=== PATIENT | female | born 1970 | race American Indian/Alaskan Native ===

== ENCOUNTER → 2024-10-27 | Outpatient (CLI) | payer MEDICAID, SELFPAY ==
--- NOTE | 2024-10-27 08:00 | XR_ITS ---
Examination: MRI abdomen with intravenous contrast. MRI abdomen without intravenous contrast. Date and time of exam: October 27, 2024 at 0912 hours INDICATIONS: Diagnosis cirrhosis, abdominal pain beginning 8 years ago Technique: Multiple axial, sagittal and coronal sections of the abdomen obtained. Transverse images, TR 6020, TE 107. T1 weighted transverse images, TR 582, TE 9.5. T2-weighted sagittal images, TR 4000, TE 105. T2-weighted sagittal images, TR 4000, TE 5. Coronal images, TR 4210, TE 107. Axial and coronal images are obtained post 20 cc intravenous injection, gadolinium. Findings: Cirrhosis, liver irregular in contour, no focal liver lesions Splenomegaly AP dimension 14 cm Gallstones, negative for cholecystitis No common hepatic or common bile duct stones No abnormal enhancement in the liver spleen No pancreatitis. No ascites Negative for hydronephrosis Aorta normal size IMPRESSION: Cirrhosis. No focal liver lesions Mild splenomegaly. Cholelithiasis, negative for cholecystitis Negative for ascites
== END | disposition home or self-care (01) ==
LOC: SMRI 08:14
PROVIDERS: PCP Family Medicine; Referring Provider Internal Medicine; Visit Provider Internal Medicine
DX: K70.30 Alcoholic cirrhosis of liver without ascites (principal); R16.1 Splenomegaly, not elsewhere classified; K80.20 Calculus of gallbladder without cholecystitis without obstruction
CPT/HCPCS: 74183; A9579

== ENCOUNTER 2025-02-01 20:05 | Inpatient (IN) | payer MEDICAID, SELFPAY ==
[2025-02-01 20:06] VITALS: BMI 29.2
[2025-02-01 20:19] VITALS: BP 164/92; PULSE 68; RESP 20; TEMP 36.5; O2SAT 95
--- NOTE | 2025-02-01 20:51 | XR_ITS ---
Examination: CT abdomen and pelvis without contrast. Coronal 3-D reconstructions. Sagittal 2-D reconstructions. Date and time of exam: February 01, 2025 2132 hours INDICATIONS: No abdominal pain after eating today CTDI: vol (mGy): 8.66 DLP: (mGycm): 450 Technique: Axial images of the abdomen have been obtained, 3 mm slice thickness Intravenous contrast material has not been administered. Low dose protocols were performed. One or more of the following dose reduction techniques were used; automated exposure control, adjustment of the mA and/or KV according to patient size, use of iterative reconstruction technique. Findings: Cirrhosis, liver lobular in contour, moderate splenomegaly Cholelithiasis No pancreatic or adrenal mass No renal or ureteral calculi, no hydronephrosis Fluid distended small bowel loops in the mid and left abdomen, secondary to incarcerated small bowel in an umbilical hernia, axial image 121 Normal appendix No diverticulitis Atrophic uterus Bladder intact IMPRESSION: Cirrhosis Moderate splenomegaly Small bowel obstruction secondary to incarcerated small bowel in a umbilical hernia
--- NOTE | 2025-02-01 20:52 | PD.EDRME ---
Rapid Medical Screening Exam E Arrival date/time: 02/01/25 20:05 This is a case of 54-year-old female with history of hernia came into the emergency room due to abdominal pain on and off for 3 days with nausea vomiting worsening of the symptoms this patient decided to start consulted in the emergency room Chief Complaint: Abdominal Pain Time Seen by Provider: 02/01/25 20:51 Vital signs: Vital Signs Temperature 97.7 F 02/01/25 20:19 Pulse Rate 68 02/01/25 20:19 Respiratory Rate 20 02/01/25 20:19 Blood Pressure 164/92 H 02/01/25 20:19 Pulse Oximetry (%) 95 02/01/25 20:19 Oxygen Delivery Method Room Air 02/01/25 20:19 Exam: Mild to tenderness periumbilical area no guarding no rebound no rigidity Clinical Impression: Abdominal pain
[2025-02-01 21:27] LABS: Collection Type, Urine Clean Catch; WBC,Urine 0 /hpf (0-5)
[2025-02-01 21:37] LABS: Amorphous Crystals,Urine Present (Absent); Bilirubin,Urine Negative (Negative); Blood,Urine Negative (Negative); Clarity,Urine Clear (Clear/Hazy); Color,Urine Lt-Yellow (Lt Yel-Yel); Glucose, Urine Negative (Negative); Ketones,Urine Negative (Negative); Leukocyte Esterase,Urine Negative (Negative); Nitrite,Urine Negative (Negative); PH,Urine 6.5 (5.0-7.0); Protein,Urine Negative (Neg - Trace); RBC,Urine 1 /hpf (0-3); Specific Gravity,Urine 1.019 (1.001-1.035); Squamous Epithelial Cell,Urine 1 /hpf (0-5); Urobilinogen,Urine Negative mg/dL (0.0-1.0)
[2025-02-01 22:01] LABS: Basophils # (Auto) 0.0 Thou/mm3 (0.0-0.2); Basophils % (Auto) 1 % (0-2.5); Eosinophils # (Auto) 0.1 Thou/mm3 (0.0-0.5); Eosinophils % (Auto) 1 % (0-10); Hematocrit 39.8 % (36.0-46.0); Hemoglobin 14.0 g/dL (12.0-16.0); Immature Granulocytes Auto 0.03 Thou/mm3 (0.00-0.00); Lymphocytes # (Auto) 1.2 Thou/mm3 (1.0-4.8); Lymphocytes % (Auto) 17 % (10-50); Mean Corpuscular HGB Conc 35.2 g/dl (31.0-37.0); Mean Corpuscular Hemoglobin 31.2 pg (25.0-35.0); Mean Corpuscular Volume 89 fL (80-100); Monocytes # (Auto) 0.3 Thou/mm3 (0.0-0.8); Monocytes % (Auto) 4 % (0-12); Neutrophils # (Auto) 5.7 Thou/mm3 (1.8-7.7); Neutrophils % (Auto) 77 % (37-80); Nucleated Red Blood Cell # 0.00 Thou/mm3 (0.00-0.00); Nucleated Red Blood Cell % 0 /100 WBC (0); Platelet Count 211 Thou/mm3 (140-440); RDW Standard Deviation 42.1 fL (36.4-46.3); Red Blood Count 4.49 Miln/mm3 (4.00-5.20); White Blood Count 7.3 Thou/mm3 (3.6-11.0)
--- NOTE | 2025-02-01 22:04 | PD.EDABDPN ---
ED Abdominal Pain RME/HPI General Chief Complaint: Abdominal Pain Stated complaint: LOWER ABD PAIN FOR FOUR HOURS Time seen by provider: 02/01/25 20:51 Arrival date/time: 02/01/25 20:05 RME / HPI RME / HPI narrative: 02/01/25 20:05 This is a case of 54-year-old female with history of hernia came into the emergency room due to abdominal pain on and off for 3 days with nausea vomiting worsening of the symptoms this patient decided to start consulted in the emergency room Dr. Escobar?s Main ED Evaluation: 54yo female with onset of periumbilical/diffuse lower abdominal pain x 3-4 hours. Pain is described as pressure and protuberance with umbilicus. She reports 1 bout of nonbloody emesis. No fever or chills. No urgency, frequency, or dysuria. PMH includes cirrhotic liver disease, HTN, previous history of alcohol dependence syndrome, chronic anemia, inappropriate sinus tachycardia. PSH includes tubal litigation. Social history unremarkable. NKA. Related Data Home Medications ?Medication ?Instructions ?Recorded ?Confirmed potassium chloride 10 mEq 10 meq PO BID 09/05/18 09/05/18 tablet,extended release Previous Rx's ?Medication ?Instructions ?Recorded furosemide 20 mg tablet 20 mg PO QAM #30 tabs 07/08/18 spironolactone 25 mg tablet 25 mg PO DAILY #30 tabs 07/08/18 potassium chloride 10 mEq 10 meq PO BID #20 caps 09/05/18 capsule,extended release Allergies Allergy/AdvReac Type Severity Reaction Status Date / Time No Known Allergies Allergy Verified 02/01/25 20:06 Review of Systems Review of Systems Systems Reviewed: All systems reviewed, normal except as documented Past Medical History Past Medical History NEUROLOGIC: Positive Neurological Disorders and Seizures CARDIAC: Positive Cardiac Disorders and Hypertension; Negative Congestive Heart Failure RESPIRATORY: Negative Chronic Obstructive Pulmonary Disease (COPD) GENITOURINARY: Negative Renal Disease ENDOCRINE: Negative Diabetes Mellitus Type 1 or Diabetes Mellitus Type 2 PSYCHO/SOCIAL: Positive Anxiety OTHER HISTORY: Negative Blood Transfusions Family History FAMILY HISTORY: Positive Family Cardiac Disorders and Family Cancer Surgical History SURGICAL: Positive Eye Surgery and Nose Surgery Social History SMOKING STATUS: Never smoker SUBSTANCE USE: does not use ED Exam Narrative Physical exam: GENERAL APPEARANCE: alert and oriented x 4, well-developed, well-nourished, complains of abdominal pain, no acute distress VITALS: All vitals were reviewed and the pulse ox is 95% on room air, which is normal according to my interpretation. HEENT: Normocephalic, atraumatic; pupils equal, round, reactive to light; EOMI; mucous membranes pink, moist; oropharynx clear NECK: Supple LUNGS: CTABL; no wheezes, no rales, no rhonchi HEART: Regular rate, regular rhythm; normal S1, S2; no murmurs ABDOMEN: non distended; soft, umbilicus has firm inner protuberance with exquisite tenderness, lower abdominal tenderness without guarding or peritoneal findings BACK: no CVA tenderness EXTREMITIES: atraumatic; no edema NEUROLOGIC: awake; alert and oriented x4; cranial nerves II-XII grossly intact; no focal sensory or motor deficits PSYCHIATRIC: appropriate mood and affect SKIN: warm, dry, normal color; no rashes Course Quality Measures none Orders Category Date Time Status Conscious Sedation [RT Stand By for Procedure] NOW Care 02/01/25 23:[address] abdomen pelvis wo con Stat Exams 02/01/25 20:51 Completed CBC Stat Lab 02/01/25 20:57 Completed Comprehensive Metabolic Panel Stat Lab 02/01/25 20:57 Completed Lipase Stat Lab 02/01/25 20:57 Completed Urinalysis Stat Lab 02/01/25 21:09 Completed Etomidate Inj [Amidate Inj] Med 02/01/25 23:55 Discontinued 10 mg IVP X1 ONE Etomidate Inj [Amidate Inj] Med 02/01/25 23:58 Discontinued 10 mg IVP X1 ONE Morphine* Inj Med 02/01/25 22:19 Discontinued 4 mg IVP X1 ONE Sodium Chloride 0.9% 1000 ml [Ns] 1,000 ml Med 02/01/25 22:18 Discontinued IV 999 mls/hr fentaNYL INJ [Sublimaze Inj] Med 02/01/25 23:55 Discontinued 50 mcg IVP X1 ONE fentaNYL INJ [Sublimaze Inj] Med 02/01/25 23:58 Discontinued 50 mcg IVP X1 ONE Vital Signs Vital signs: Vital Signs Temperature 97.7 F 02/01/25 20:19 Pulse Rate 68 02/01/25 20:19 Respiratory Rate 20 02/01/25 20:19 Blood Pressure 164/92 H 02/01/25 20:19 Pulse Oximetry (%) 95 02/01/25 20:19 Oxygen Delivery Method Room Air 02/01/25 20:19 PROCEDURES: Procedural Sedation Indication: other (umbilical hernia reduction) Presedation Evaluation: Patient is alert, awake, oriented x4. Patient consented to procedural sedation for hernia reduction. Mallapati score is 2. ASA: 2 Preparation: panel monitor applied, pulse oximeter, capnometry used, supplemental O2 applied, suction/airway equipment at bedside and IV secured Fentanyl: IV (100 mcg) IV Etomidate dose (mg): 20 Patient Tolerated Procedure: well and no complications Additional Comments: [id number]-[id number] time is 22 minutes. Abdominal Pain MDM MDM Narrative MDM Narrative:: Scribe Attestation: 02/01/25 - Zaida Castellanos am scribing for and in the presence of Dr. Escobar. 54yo female with onset of periumbilical/diffuse lower abdominal pain x 3-4 hours. Pain is described as pressure and protuberance with umbilicus. Please see PE findings. Labs unremarkable. CT abdomen pelvis demonstrates incarcerated umbilical hernia with noted small bowel ileus. Patient underwent successful reduction of umbilical hernia via procedural sedation (see procedure note) and abdominal binder added. Case discussed with hospitalist and general surgeon, and patient will be admitted to the hospitalist service for evaluation by the general surgeon in the morning. Dx: incarcerated umbilical hernia Patient data External records reviewed:: [facility] previous records (Per chart review, patient was seen here on 09/05/18 for ascites.) Clinical information provided by:: patient Social determinants that could affect healthcare access:: none Patient has the following chronic illnesses:: seizures, hypertension, hepatic encephalopathy, and liver cirrhosis with ascites How is presenting disease/condition affected by chronic disease/condition?: exacerbated by Evaluation data The following diagnostics were reviewed and interpreted by me:: lab results and radiology exam(s) Lab and/or radiology exams considered but not ordered:: none Interpretation Summary: [place] [facility] Report Signed Patient: ZION MCKENZIE. Record#: [id number] Birthdate: 1970 Age/Sex: 54 / F Location: [facility] Attending Dr: Ordering Physician: Stella Verdugo Date of Service: 02/01/25 Procedure(s): CT abdomen pelvis wo [facility] Accession Number(s): [id number] cc: Yakov Rivera MD; Aleksandr Mejia MD; Stella Verdugo~ Examination: CT abdomen and pelvis without contrast. Coronal 3-D reconstructions. Sagittal 2-D reconstructions. Date and time of exam: February 01, 2025 2132 hours INDICATIONS: No abdominal pain after eating today CTDI: vol (mGy): 8.66 DLP: (mGycm): 450 Technique: Axial images of the abdomen have been obtained, 3 mm slice thickness Intravenous contrast material has not been administered. Low dose protocols were performed. One or more of the following dose reduction techniques were used; automated exposure control, adjustment of the mA and/or KV according to patient size, use of iterative reconstruction technique. Findings: Cirrhosis, liver lobular in contour, moderate splenomegaly Cholelithiasis No pancreatic or adrenal mass No renal or ureteral calculi, no hydronephrosis Fluid distended small bowel loops in the mid and left abdomen, secondary to incarcerated small bowel in an umbilical hernia, axial image 121 Normal appendix No diverticulitis Atrophic uterus Bladder intact IMPRESSION: Cirrhosis Moderate splenomegaly Small bowel obstruction secondary to incarcerated small bowel in a umbilical hernia Dictated By: Aleksandr Mejia MD Signed By: <Electronically signed by Aleksandr Mejia MD in OV> 02/01/25 3023 Medications / Prescriptions Medications or Prescriptions considered but not ordered:: none Medication administrations:: Medication Administration History Discontinued Medications Etomidate (Etomidate Inj 2 Mg/Ml Vial 10 Ml) 10 mg IVP X1 ONE Stop: 02/01/25 23:56 Etomidate (Etomidate Inj 2 Mg/Ml Vial 10 Ml) 10 mg IVP X1 ONE Stop: 02/01/25 23:59 Fentanyl Citrate (Fentanyl Cit Inj 50 Mcg/Ml Amp 2ml) 50 mcg IVP X1 ONE Stop: 02/01/25 23:56 Fentanyl Citrate (Fentanyl Cit Inj 50 Mcg/Ml Amp 2ml) 50 mcg IVP X1 ONE Stop: 02/01/25 23:59 Sodium Chloride (Ns) 1,000 mls @ 999 mls/hr IV .Q1H1M ONE Stop: 02/01/25 23:18 Last Admin: 10/26/25 23:36 Dose: 999 mls/hr Documented By: JONATHAN Morphine Sulfate (Morphine Sulf Inj 4 Mg/Ml Vial) 4 mg IVP X1 ONE Stop: 02/01/25 22:20 Last Admin: 02/01/25 23:33 Dose: 4 mg Documented By: JONATHAN see above Consultations Consultation(s) initiated? (list below): Yes Consultation #1 (Physician, Specialty, Details): Discussed case with Dr. Elias from general surgery regarding consultation. Discussed patients ED course, exam findings, labs, and radiology results. Agrees to consult. Time: 00:26 Consultation #2 (Physician, Specialty, Details): Discussed case with the resident physician, attending Dr. Howe from Hospitalist service regarding admission. Discussed patients ED course, exam findings, labs, and radiology results. The Hospitalist agrees to accept the patient for admission. Time: 00:40 Diagnosis Differential diagnosis abdominal pain: constipation, diverticulitis, gastroenteritis, small bowel obstruction and other (incarcerated hernia) Most likely diagnosis given after review of the tests above:: see clinical impression below Admission Indicated Admission indicated?: indicated Admission Request Was there a request for admission?: Yes Admission Attestation Admission request attestation: Discussed case with [] from Hospitalist service regarding admission. Discussed patients ED course, exam findings, labs, and radiology results. The Hospitalist [agrees,declines] to accept the patient for admission. Disposition Plan Disposition Plan: Admit Discharge Plan Plan Patient Disposition: Admit Acute Care w/in Hospital Prescriptions/Referrals Prescriptions/Med Rec: No Action spironolactone 25 mg Tablet 25 mg PO DAILY Qty: 30 0RF furosemide 20 mg Tablet 20 mg PO QAM Qty: 30 0RF potassium chloride 10 mEq Tablet Extended Release 10 meq PO BID potassium chloride 10 mEq capsule, extended release 10 meq PO BID Qty: 20 0RF Referrals: Yakov Rivera MD [Primary Care Provider, Family Practice] - In 1 week Problem List Clinical Impression: Incarcerated umbilical hernia Patient/Caregiver Discharge Instructions Print Language: Faroese Stand Alone Forms: Kristel Award Info., Patient Portal Info Letter
[2025-02-01 22:34] LABS: Alanine Aminotransferase 25 U/L (10-49); Albumin, Serum 4.4 gm/dL (3.5-5.0); Albumin/Globulin Ratio 1.6 (1.2-2.2); Alkaline Phosphatase 87 U/L (46-116); Anion Gap 10 (7-16); Aspartate Amino Transferase 36 U/L (0-34); BUN/Creatinine Ratio 13 Ratio (12-20); Bilirubin,Total 1.2 mg/dL (0.3-1.2); Blood Urea Nitrogen 10 mg/dL (9-23); Calcium 9.2 mg/dL (8.3-10.6); Calcium (Corrected) 9.2 mg/dL (8.5-10.1); Carbon Dioxide 26.7 mMol/L (20.0-31.0); Chloride 106 mMol/L (98-107); Creatinine (Component) 0.8 mg/dL (0.6-1.3); Estimated Creatinine Clearance 76.1 mL/min (>60); Globulin 2.8 gm/dL (2.3-3.5); Glucose 121 mg/dL (74-106); Lipase 53 U/L (12-53); Osmolality,Calculated 284 (275-295); Potassium 3.7 mMol/L (3.4-5.1); Sodium 143 mMol/L (136-145); Total Protein 7.2 gm/dL (5.7-8.2); eGFR > 60 See Note
[2025-02-01 23:02] VITALS: BP 151/84; PULSE 65; RESP 21; O2SAT 99
[2025-02-01 23:03] VITALS: BP 151/84; PULSE 66; RESP 20; TEMP 36.7; O2SAT 97
[2025-02-01] MEDS: MORPHINE SULF INJ 4 MG/ML VIAL IVP (23:33)
[2025-02-01] MEDS: SODIUM CHLORIDE 0.9% 1000 ML 1,000 ML 999 ML IV (23:36)
[2025-02-02] VITALS (26 sets, daily range): BP systolic 118–151; BP diastolic 69–89; PULSE 58–82; RESP 14–22; TEMP 36.1–36.8; O2SAT 95–100; BMI 31.5
[2025-02-02] MEDS: fentaNYL CIT INJ 50 mCg/ML AMP 2ML IVP ×2 (00:29→00:33)
[2025-02-02] MEDS: ETOMIDATE INJ 2 MG/ML VIAL 10 ML 10 MG IVP ×2 (00:30→00:32)
--- NOTE | 2025-02-02 01:21 | PD.RESHP ---
Documentation for date of: 02/02/25 HPI History of Present Illness Chief complaint: Periumbilical pain. History of present illness: This is a 54-year-old female with past medical history of cirrhosis, hypertension presented to the ED with complaints of [place] umbilical pain. She started to experience severe Periumbilical pain 8/10 on pain scale, pressure sensation and protuberance starting around 2 PM on 02/01 associated with nausea and 1 episode of vomiting which prompted her to the ED visit. She knows she had umbilical hernia for 8 years now but denies any episodes of hernia obstruction. She came to the ED with the complaints of abdominal pain where she got reduction of hernia by conscious sedation. When I visited her she denies any fever, diarrhea, pain, vomiting, fever, urinary frequency, urgency, chest pain, chest tightness, shortness of breath. Her last bowel movement was on 02/01 around 2 PM. Today ED visit vitals BP 164/92, pulse rate 68, respiratory 20, temperature 97.7, saturating oxygen 95% on 2 L of oxygen . Pertinent imaging findings are CT scan abdomen scan showing small bowel obstruction secondary to incarcerated small bowel umbilical hernia. Past medical history: Cirrhosis for which she follows with [facility] and currently managed well. Hypertension takes propranolol 10 mg once a day Past surgical history: Tubal ligation. Family history: History of breast cancer and diabetes in her mother. History of dementia and parkinsonism in her father. Social history: Alcohol dependence until 2019 . Allergic history: NKDA Review of Systems Review of Systems Systems Reviewed: All systems reviewed, normal except as documented Exam Vital Signs Temp Pulse Resp BP Pulse Ox O2 Del Method O2 Flow Rate 98.0 F 68 19 151/84 H 99 Room Air 2 02/01/25 23:03 02/02/25 00:47 02/02/25 00:47 02/01/25 23:03 02/02/25 00:47 02/01/25 23:03 02/02/25 00:47 Narrative Exam GENERAL: NAD, AAOx3 HEENT: Moist mucosa. Eyes open, symmetrical, & clear CARDIO: Regular rhythm Noted. No Murmurs. PULM: No noted coughing/dyspnea CTA B/L, no R/W/R GI: Abdomen soft, nondistended, soreness in the umbilical region and the umbilical hernia was reduced. SKIN/MSK/EXT: No wounds/rashes/amputations, no pain on palpation.. Pedal pulses present B/L NEURO: AAOx3, no focal neuro deficits, able to move all 4 extremities. Results: Labs 02/02/25 07:21 02/02/25 10:14 Labs: Short CBC 02/01/25 Range/Units 20:57 WBC 7.3 (3.6-11.0) Thou/mm3 Hgb 14.0 (12.0-16.0) g/dL Hct 39.8 (36.0-46.0) % Plt Count 211 (140-440) Thou/mm3 BMP 02/01/25 20:57 Sodium 143 Potassium 3.7 Chloride 106 Carbon Dioxide 26.7 BUN 10 Creatinine 0.8 Glucose 121 H Calcium 9.2 Liver Function 02/01/25 Range/Units 20:57 Total Bilirubin 1.2 (0.3-1.2) mg/dL AST 36 H (0-34) U/L ALT 25 (10-49) U/L Alkaline Phosphatase 87 (46-116) U/L Albumin 4.4 (3.5-5.0) gm/dL Urine 02/01/25 Range/Units 21:09 Urine Color Lt-Yellow (Lt Yel-Yel) Urine Clarity Clear (Clear/Hazy) Urine pH 6.5 (5.0-7.0) Ur Specific [place] 1.019 (1.001-1.035) Urine Protein Negative (Neg - Trace) Urine Glucose (UA) Negative (Negative) Quality Measures Quality Measures none Medications Home Medications and Allergies Home Medications ?Medication ?Instructions ?Recorded ?Confirmed ?Type propranolol 20 mg tablet 20 mg PO DAILY 02/02/25 02/02/25 History Allergies Allergy/AdvReac Type Severity Reaction Status Date / Time No Known Allergies Allergy Verified 02/01/25 20:06 Visit Medications Discontinued Medications Etomidate (Etomidate Inj 2 Mg/Ml Vial 10 Ml) 10 mg IVP X1 ONE Stop: 02/01/25 23:56 Last Admin: 02/02/25 00:30 Dose: 10 mg Etomidate (Etomidate Inj 2 Mg/Ml Vial 10 Ml) 10 mg IVP X1 ONE Stop: 02/01/25 23:59 Last Admin: 02/02/25 00:32 Dose: 10 mg Fentanyl Citrate (Fentanyl Cit Inj 50 Mcg/Ml Amp 2ml) 50 mcg IVP X1 ONE Stop: 02/01/25 23:56 Last Admin: 02/02/25 00:29 Dose: 50 mcg Fentanyl Citrate (Fentanyl Cit Inj 50 Mcg/Ml Amp 2ml) 50 mcg IVP X1 ONE Stop: 02/01/25 23:59 Last Admin: 02/02/25 00:33 Dose: 50 mcg Sodium Chloride (Ns) 1,000 mls @ 999 mls/hr IV .Q1H1M ONE Stop: 02/01/25 23:18 Last Infusion: 02/02/25 01:06 Dose: Infused Morphine Sulfate (Morphine Sulf Inj 4 Mg/Ml Vial) 4 mg IVP X1 ONE Stop: 02/01/25 22:20 Last Admin: 02/01/25 23:33 Dose: 4 mg Assessment & Plan Plan This is a 54-year-old female with past medical history of cirrhosis, hypertension presented to the ED with complaints of Periumbilical pain,Nausea ,swelling and 1 episode of vomiting. She was admitted for incarcerated umbilical hernia which was reduced by conscious sedation. # Incarcerated umbilical hernia Complaints of periumbilical pain, vomiting, nausea and protuberance. BP 122/78, pulse rate 58, temperature 98.3 CT scan shown small bowel obstruction secondary to incarcerated small bowel incarcerated hernia Successfully able to consciously sedate and reduce the hernia back into the abdomen by the ED doctor. -Consulted Dr. Elias for the further management of abdominal rectal hernia ?Started on n.p.o. now. ?Ordered lactate and lactate looks normal. ?Ordered PT/INR and type&screen. # Cirrhosis Currently no stigmata of cirrhosis. She is following Doctor For her cirrhosis at [facility] looks normal ?Continue to monitor. # Hypertension Initial blood pressure 164/92 currently it is 132/78 ?Continuing her home medication propranolol 20 mg daily Code status: Full DVT prophylaxis: SCD Diet: NPO Daniels: None Lines: PIV Supplemental O2: NC @2L Disposition: Med Surg I discussed this case with my senior Dr. Ramirez and my attending Dr. guy Sim MD,PGY1 Attending Provider Attestation/Addendum After examination of the patient and review of the clinical data I feel that this patient needs admission to the hospital for further treatment/evaluation. Plan of care discussed with patient and is in agreement. I Shara Howe MD, attest that I was physically present for mckeon portions of evaluation, and examined patient, labs and imagings and plan of care were discussed with IM residents team, and I agree with the findings and plans documented above.
[2025-02-02 01:55] LABS: Lactate (Lactic Acid) 0.9 mMol/L (0.4-2.0)
[2025-02-02 02:18] LABS: Cardiac Risk Estimate 3.0 RATIO (3.7-5.6); Cholesterol 124 mg/dL (132-200); HDL Cholesterol 42 mg/dL (40-60); LDL Cholesterol,Calculated 70 mg/dL (0-130); Triglycerides 61 mg/dL (30-150)
--- NOTE | 2025-02-02 03:50 | PC.NURSE ---
REPORT CALLED AND PT TAKEN TO RM [id number] BY WHEELCHAIR.
[2025-02-02 07:45] LABS: Alanine Aminotransferase 22 U/L (10-49); Albumin, Serum 4.0 gm/dL (3.5-5.0); Albumin/Globulin Ratio 1.7 (1.2-2.2); Alkaline Phosphatase 72 U/L (46-116); Anion Gap 15 (7-16); Aspartate Amino Transferase 32 U/L (0-34); BUN/Creatinine Ratio 15 Ratio (12-20); Bilirubin,Total 1.6 mg/dL (0.3-1.2); Blood Urea Nitrogen 9 mg/dL (9-23); Calcium 8.6 mg/dL (8.3-10.6); Calcium (Corrected) 8.6 mg/dL (8.5-10.1); Carbon Dioxide 19.7 mMol/L (20.0-31.0); Chloride 111 mMol/L (98-107); Creatinine (Component) 0.6 mg/dL (0.6-1.3); Estimated Creatinine Clearance 105.3 mL/min (>60); Globulin 2.4 gm/dL (2.3-3.5); Glucose 114 mg/dL (74-106); Magnesium 1.7 mg/dL (1.6-2.6); Osmolality,Calculated 290 (275-295); Potassium 3.6 mMol/L (3.4-5.1); Sodium 146 mMol/L (136-145); Thyroid Stimulating Hormone 3.68 uIU/mL (0.55-4.78); Total Protein 6.4 gm/dL (5.7-8.2); eGFR > 60 See Note
[2025-02-02 08:02] LABS: Basophils # (Auto) 0.0 Thou/mm3 (0.0-0.2); Basophils % (Auto) 0 % (0-2.5); Eosinophils # (Auto) 0.1 Thou/mm3 (0.0-0.5); Eosinophils % (Auto) 2 % (0-10); Hematocrit 37.3 % (36.0-46.0); Hemoglobin 13.0 g/dL (12.0-16.0); Immature Granulocytes Auto 0.01 Thou/mm3 (0.00-0.00); Lymphocytes # (Auto) 1.4 Thou/mm3 (1.0-4.8); Lymphocytes % (Auto) 26 % (10-50); Mean Corpuscular HGB Conc 34.9 g/dl (31.0-37.0); Mean Corpuscular Hemoglobin 30.9 pg (25.0-35.0); Mean Corpuscular Volume 89 fL (80-100); Monocytes # (Auto) 0.4 Thou/mm3 (0.0-0.8); Monocytes % (Auto) 7 % (0-12); Neutrophils # (Auto) 3.5 Thou/mm3 (1.8-7.7); Neutrophils % (Auto) 65 % (37-80); Nucleated Red Blood Cell # 0.00 Thou/mm3 (0.00-0.00); Nucleated Red Blood Cell % 0 /100 WBC (0); Platelet Count 170 Thou/mm3 (140-440); RDW Standard Deviation 41.8 fL (36.4-46.3); Red Blood Count 4.21 Miln/mm3 (4.00-5.20); White Blood Count 5.4 Thou/mm3 (3.6-11.0)
--- NOTE | 2025-02-02 10:32 | ESPR_ITS ---
<Statement entered by Gino Barth MD - 02/02/25 17:31> I reviewed above note and agree with findings and plans. I have also personally examined the patient with medicine team and went over assessment and plan with medical team including research program intern and resident physician. Documentation for date of: 02/02/25 Subjective Subjective Interval history: The patient's abdominal pain has improved. She was evaluated by General Surgery, who advised that surgical intervention for the incarcerated umbilical hernia is not required at this time, as the hernia was successfully reduced in the ED. Patient decided to do hernia repair surgery. Planned 02/03 at 11am. Initial labs showed a bicarbonate level of 19.7 and lactic acid 0.9. A repeat stat renal panel and lactic acid were obtained, revealing normalization of bicarbonate to 24.2 but an increase in lactic acid to 2.5. Ordered IVF LR 100ml/hr for 500ml and repeat lactic acid level in 3hrs. The patient transitioned to liquid diet from NPO and will be monitored for 1 more day for clinical stability and lab trend improvement. No Overnight events. Labs reviewed and patient examined at the bedside. Denies chest pain, palpation, SOB, N/V, fevers or chills. Exam Vital Signs Temp Pulse Resp BP Pulse Ox O2 Del Method O2 Flow Rate 97.4 F 64 17 120/74 98 Room Air 2 02/02/25 08:00 02/02/25 08:08 02/02/25 08:00 02/02/25 08:08 02/02/25 08:00 02/02/25 08:00 02/02/25 01:15 Narrative Exam General: No acute distress, well nourished, AAO x3 Eye: PERRL, EOMI, normal conjunctiva, no scleral icterus HENT: Normocephalic, atraumatic, hearing intact to conversation at normal volume, moist oral mucosa Neck: Supple, non-tender, no JVD, no lymphadenopathy Lungs: Non-labored respirations, symmetric chest rise, Clear to auscultate bilaterally, No wheezing, rhonchi, crackles Heart: Peripheral pulses intact bilaterally, Regular Rate and Rhythm. Abdomen: Soft, non-distended, no palpable masses, mild tenderness in umbilical region Musculoskeletal: Normal range of motion and strength, No cyanosis or edema, No visible joint swelling Skin: Skin is warm, dry, no rashes or lesions. Psychiatric: Cooperative, appropriate mood and affect, Awake and alert, not agitated Neuro: Cranial nerves II-XII grossly intact. Strength 5/5 throughout. Sensations intact to light touch. Objective Labs 02/02/25 07:21 02/02/25 10:14 Labs: Laboratory Results - last 24 hr 02/01/25 02/01/25 02/02/25 20:57 21:09 01:47 WBC 7.3 RBC 4.49 Hgb 14.0 Hct 39.8 MCV 89 MCH 31.2 MCHC 35.2 RDW Std Deviation 42.1 Plt Count 211 Neut % (Auto) 77 Lymph % (Auto) 17 [place] % (Auto) 4 Eos % (Auto) 1 Baso % (Auto) 1 Neut # (Auto) 5.7 Lymph # (Auto) 1.2 [place] # (Auto) 0.3 Eos # (Auto) 0.1 Baso # (Auto) 0.0 Immature Gran # (Auto) 0.03 H Absolute Nucleated RBC 0.00 Immature Gran % 0 Nucleated RBC % 0 Sodium 143 146 H Potassium 3.7 3.6 Chloride 106 111 H Carbon Dioxide 26.7 19.7 L Anion Gap 10 15 BUN 10 9 Creatinine 0.8 0.6 Estim Creat Clear Calc 76.1 105.3 eGFR > 60 > 60 BUN/Creatinine Ratio 13 15 Glucose 121 H 114 H Calculated Osmolality 284 290 Lactic Acid 0.9 Calcium 9.2 8.6 Corrected Calcium 9.2 8.6 Magnesium 1.7 Total Bilirubin 1.2 1.6 H AST 36 H 32 ALT 25 22 Alkaline Phosphatase 87 72 Total Protein 7.2 6.4 Albumin 4.4 4.0 Globulin 2.8 2.4 Albumin/Globulin Ratio 1.6 1.7 Triglycerides 61 Cholesterol 124 L LDL Cholesterol, Calc 70 HDL Cholesterol 42 Cholesterol/HDL Ratio 3.0 L Lipase 53 TSH 3.68 Ur Collection Type Clean Catch Urine Color Lt-Yellow Urine Clarity Clear Urine pH 6.5 Ur Specific Kend[place] 1.019 Urine Protein Negative Urine Glucose (UA) Negative Urine Ketones Negative Urine Blood Negative Urine Nitrite Negative Urine Bilirubin Negative Urine Urobilinogen (Auto) Negative Ur Leukocyte Esterase Negative Urine RBC 1 Urine WBC 0 Ur Squamous Epith Cells 1 Amorphous Crystals Present A Urine Bacteria None Blood Type O Positive Antibody Screen NEGATIVE Blood Bank Wristband ID Yes 02/02/25 07:21 WBC 5.4 RBC 4.21 Hgb 13.0 Hct 37.3 MCV 89 MCH 30.9 MCHC 34.9 RDW Std Deviation 41.8 Plt Count 170 D Neut % (Auto) 65 Lymph % (Auto) 26 [place] % (Auto) 7 Eos % (Auto) 2 Baso % (Auto) 0 Neut # (Auto) 3.5 Lymph # (Auto) 1.4 [place] # (Auto) 0.4 Eos # (Auto) 0.1 Baso # (Auto) 0.0 Immature Gran # (Auto) 0.01 H Absolute Nucleated RBC 0.00 Immature Gran % 0 Nucleated RBC % 0 Sodium Potassium Chloride Carbon Dioxide Anion Gap BUN Creatinine Estim Creat Clear Calc eGFR BUN/Creatinine Ratio Glucose Calculated Osmolality Lactic Acid Calcium Corrected Calcium Magnesium Total Bilirubin AST ALT Alkaline Phosphatase Total Protein Albumin Globulin Albumin/Globulin Ratio Triglycerides Cholesterol LDL Cholesterol, Calc HDL Cholesterol Cholesterol/HDL Ratio Lipase TSH Ur Collection Type Urine Color Urine Clarity Urine pH Ur Specific [place] Urine Protein Urine Glucose (UA) Urine Ketones Urine Blood Urine Nitrite Urine Bilirubin Urine Urobilinogen (Auto) Ur Leukocyte Esterase Urine RBC Urine WBC Ur Squamous Epith Cells Amorphous Crystals Urine Bacteria Blood Type Antibody Screen Blood Bank Wristband ID Quality Measures Quality Measures none Assessment & Plan Assessment Current Active Medications: Generic Name Dose Route Start Last Admin Trade Name Freq PRN Reason Stop Dose Admin Acetaminophen 650 mg 02/02/25 01:21 Acetaminophen 325 Mg Tablet PO 03/04/25 01:20 Q6H PRN Fever >101.5 Acetaminophen 650 mg 02/02/25 01:21 Acetaminophen 325 Mg Tablet PO 03/04/25 01:20 Q6H PRN PAIN SCALE 1-3 (mild Carvedilol 3.125 mg 02/02/25 08:00 02/02/25 08:08 Carvedilol 3.125 Mg Tablet PO 03/04/25 07:59 3.125 mg BIDWM SIMBA Administration Ondansetron HCl 4 mg 02/02/25 01:21 Ondansetron Inj 2 Mg/Ml Inj 2 Ml IVP 03/04/25 01:20 Q6H PRN NAUSEA OR VOMITING Protocol Plan This is a 54-year-old female with past medical history of cirrhosis, hypertension presented to the ED with complaints of Periumbilical pain,Nausea ,swelling and 1 episode of vomiting. She was admitted for incarcerated umbilical hernia which was reduced by conscious sedation. #Incarcerated umbilical hernia #Lactic Acidosis -Complaints of periumbilical pain, vomiting, nausea and protuberance. -On admission, BP 122/78, pulse rate 58, temperature 98.3 -CT scan shown small bowel obstruction secondary to incarcerated small bowel incarcerated hernia -Successfully able to consciously sedate and reduce the hernia back into the abdomen by the ED doctor. -Evaluated by General Surgery, who advised that surgical intervention for the incarcerated umbilical hernia is not required at this time, as the hernia was successfully reduced in the ED. - Initial labs showed a biarbonate level of 19.7 and lactic acid 0.9. A repeat stat renal panel and lactic acid were obtained, revealing normalization of bicarbonate to 24.2 but an increase in lactic acid to 2.5. Plan - Patient decided to do hernia repair surgery. Planned 02/03 at 11am. -Consulted Dr. Elias for the further management of abdominal rectal hernia -Ordered IVF LR 100ml/hr for 500ml ?Transitioned to clear liquid diet from NPO. Ordered NPO after midnight. ?Ordered PT/INR and type&screen. # Cirrhosis Currently no stigmata of cirrhosis. She is following Doctor For her cirrhosis at [facility] looks normal ?Continue to monitor. # Hypertension Initial blood pressure 164/92 currently it is 132/78 ?Continuing her home medication propranolol 20 mg daily Code status: Full DVT prophylaxis: SCD Diet: NPO Daniels: None Lines: PIV Disposition: Med Surg Assessment and plan discussed with my attending physician Dr. Barth and Dr. Solorzano (PGY-3) Dr. Ragland (PGY-1) - Internal medicine resident
[2025-02-02 10:36] LABS: Lactate (Lactic Acid) 2.5 mMol/L (0.4-2.0)
[2025-02-02 11:05] LABS: Albumin, Serum 3.6 gm/dL (3.5-5.0); Anion Gap 11 (7-16); BUN/Creatinine Ratio 13 Ratio (12-20); Blood Urea Nitrogen 8 mg/dL (9-23); Calcium 8.3 mg/dL (8.3-10.6); Calcium (Corrected) 8.6 mg/dL (8.5-10.1); Carbon Dioxide 24.2 mMol/L (20.0-31.0); Chloride 108 mMol/L (98-107); Creatinine (Component) 0.6 mg/dL (0.6-1.3); Estimated Creatinine Clearance 105.3 mL/min (>60); Glucose 139 mg/dL (74-106); Osmolality,Calculated 285 (275-295); Phosphorous 2.8 mg/dL (2.4-5.1); Potassium 3.4 mMol/L (3.4-5.1); Sodium 143 mMol/L (136-145); eGFR > 60 See Note
--- NOTE | 2025-02-02 11:57 | PC.SS ---
Follow up note: Pending Dr. Elias's recommendations. General surgery consulting.
[2025-02-02] MEDS: RINGERS LACTATED 1000 ML 500 ML 100 ML IV (12:29)
[2025-02-02 13:32] LABS: Reflex Lactate? Y
[2025-02-02 14:16] LABS: Lactic Acid, 3 HR 1.9 mMol/L (0.4-2.0)
[2025-02-02 15:45] LABS: Lactate (Lactic Acid) 1.1 mMol/L (0.4-2.0)
--- NOTE | 2025-02-02 16:20 | PC.SS ---
SS met with patient regarding her d/c plan. Pt is alert/oriented. Pt was admitted for Umbilical hernia. Pt confirmed demographic and contact information is correct on facesheet. Pt resides with life partner. Pt ambulates independently without assistance or DME. Pt is ok with all ADLs. Patient?s pharmacy of choice is [facility] on [address] Pt named her life partner, Cole medical decision maker if she is unable. Patient?s choice is to return home upon d/c. Pt does not have an advance directive, SS offered, and pt declined. Pt states she is not diabetic and is not on dialysis. Pt followed up with PCP 1 month ago. Life partner will provide transportation home. D/C plan: Return home Next of Kin: Cole Lanier, life partner, phone# [phone] PCP: [facility] Address: Correct on facesheet
--- NOTE | 2025-02-02 16:41 | PD.SURCONS ---
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 Patient states her hernia became acutely painful, 8 out of 10 in severity associated with nausea and 1 episode of vomiting which prompted her to visit the ER. She underwent CT showing that the small bowel was incarcerated however it was successfully reduced under conscious sedation. As of this morning patient reports feeling better with no pain, no nausea, she is feeling hungry and did have a regular bowel movement yesterday PMH: HTN, cirrhosis which is well-managed. Patient states she in the past needed to have paracenteses and follow-up with a security incident handler in [place], however at her last visit she was advised that she does not need regular visits PSH: Tubal ligation Meds: Propranolol Allergies: NKDA Review of Systems Review of Systems ROS Unobtainable: All systems reviewed & no additional complaints except as documented Meds Home Medications and Allergies Home Medications ?Medication ?Instructions ?Recorded ?Confirmed ?Type propranolol 20 mg tablet 20 mg PO DAILY 02/02/25 02/02/25 History Allergies Allergy/AdvReac Type Severity Reaction Status Date / Time No Known Allergies Allergy Verified 02/01/25 20:06 Exam Vital Signs Temp Pulse Resp BP Pulse Ox O2 Del Method O2 Flow Rate 97.5 F 82 18 118/69 96 Room Air 2 02/02/25 12:00 02/02/25 12:00 02/02/25 12:00 02/02/25 12:00 02/02/25 12:00 02/02/25 12:00 02/02/25 01:15 Constitutional Constitutional: no acute distress Routine Respiratory Exam Respiratory: Present no resp distress Routine Abdominal Exam Abdominal: Present soft and hernia (Reducible umbilical hernia, no overlying skin changes); Absent tenderness or distended Results Results: Laboratory Laboratory results: results reviewed Results: Imaging CT scan - abdomen: report reviewed and image reviewed Assessment & Plan Plan 54F with HTN, cirrhosis which is controlled and patient has abstained from alcohol for many years, with several year history of umbilical hernia which became incarcerated yesterday. I explained that because she did have this episode of incarceration it is reasonable to pursue surgery during his hospitalization to hopefully prevent future episodes of the same. I did inform her that her history of cirrhosis does put her at higher risk of bleeding, infection and recurrence, however as her cirrhosis is well managed and she has abstained from alcohol for many years I do not see any way for her to be more optimized for surgery. As her hernia is less than 2 cm I would recommend primary repair without a mesh. All questions were answered and patient is agreeable to proceeding OR tomorrow 02/03 for umbilical hernia repair, will add the possibility of laparoscopy in case there is any difficulty identifying the hernia
[2025-02-03] VITALS (14 sets, daily range): BP systolic 108–138; BP diastolic 66–98; PULSE 61–90; RESP 12–18; TEMP 36.1–37.3; O2SAT 92–97
[2025-02-03 05:49] LABS: Basophils # (Auto) 0.0 Thou/mm3 (0.0-0.2); Basophils % (Auto) 0 % (0-2.5); Eosinophils # (Auto) 0.1 Thou/mm3 (0.0-0.5); Eosinophils % (Auto) 3 % (0-10); Hematocrit 35.7 % (36.0-46.0); Hemoglobin 12.5 g/dL (12.0-16.0); Immature Granulocytes Auto 0.00 Thou/mm3 (0.00-0.00); Lymphocytes # (Auto) 1.3 Thou/mm3 (1.0-4.8); Lymphocytes % (Auto) 40 % (10-50); Mean Corpuscular HGB Conc 35.0 g/dl (31.0-37.0); Mean Corpuscular Hemoglobin 31.2 pg (25.0-35.0); Mean Corpuscular Volume 89 fL (80-100); Monocytes # (Auto) 0.2 Thou/mm3 (0.0-0.8); Monocytes % (Auto) 6 % (0-12); Neutrophils # (Auto) 1.6 Thou/mm3 (1.8-7.7); Neutrophils % (Auto) 52 % (37-80); Nucleated Red Blood Cell # 0.00 Thou/mm3 (0.00-0.00); Nucleated Red Blood Cell % 0 /100 WBC (0); Platelet Count 128 Thou/mm3 (140-440); RDW Standard Deviation 42.1 fL (36.4-46.3); Red Blood Count 4.01 Miln/mm3 (4.00-5.20); White Blood Count 3.2 Thou/mm3 (3.6-11.0)
[2025-02-03 05:59] LABS: INR 1.1 (0.9-1.3); Prothrombin Time 12.0 Seconds (9.0-12.2)
[2025-02-03 06:08] LABS: Alanine Aminotransferase 18 U/L (10-49); Albumin, Serum 3.8 gm/dL (3.5-5.0); Albumin/Globulin Ratio 1.7 (1.2-2.2); Alkaline Phosphatase 59 U/L (46-116); Anion Gap 9 (7-16); Aspartate Amino Transferase 30 U/L (0-34); BUN/Creatinine Ratio 15 Ratio (12-20); Bilirubin,Total 1.7 mg/dL (0.3-1.2); Blood Urea Nitrogen 9 mg/dL (9-23); Calcium 8.7 mg/dL (8.3-10.6); Calcium (Corrected) 8.9 mg/dL (8.5-10.1); Carbon Dioxide 29.1 mMol/L (20.0-31.0); Chloride 108 mMol/L (98-107); Creatinine (Component) 0.6 mg/dL (0.6-1.3); Estimated Creatinine Clearance 105.3 mL/min (>60); Globulin 2.3 gm/dL (2.3-3.5); Glucose 93 mg/dL (74-106); Magnesium 1.8 mg/dL (1.6-2.6); Osmolality,Calculated 289 (275-295); Phosphorous 3.2 mg/dL (2.4-5.1); Potassium 4.0 mMol/L (3.4-5.1); Sodium 146 mMol/L (136-145); Total Protein 6.1 gm/dL (5.7-8.2); eGFR > 60 See Note
--- NOTE | 2025-02-03 08:44 | ESPR_ITS ---
<Statement entered by Arabella Solorzano MD - 02/03/25 16:07> Patient was seen and examined at bedside. No acute overnight event. Patient had an umbilical hernia repair. Surgery went without complication. Patient was seen at bedside after surgery, comfortably laying in bed, denied any pain or discomfort. Will monitor for 1 more day, if patient stay afebrile, pain is managed, tolerates diet well, having a bowel movement, patient will be discharged tomorrow morning. I discussed with and supervised the consultant internship physician who took care of this patient. I personally saw and examined the patient and discussed the assessment and plan with the entire medicine team, including my attending , I agree with the assessment and plan as documented below Arabella Solorzano M.D. PGY-3 Disclaimer: Despite multiple revisions, due to the dictation software being used, the document bellow may not be free of grammatical errors including phonetic/typographic errors. However, this does not deter from our commitment to providing health care in the patient's best interest in mind. Documentation for date of: 02/03/25 Subjective Subjective Interval history: Patient received primary umbilical hernia repair today 02/03. Will stay at the hospital for 1 more day for bowel movement, postop pain, or development of any fevers or tachycardia. Patient will be discharged tomorrow morning. Labs reviewed and patient examined at the bedside. Mild abdominal pain around umbilicus where surgery was done. Denies chest pain, palpation, SOB, N/V, fevers or chills. Exam Vital Signs Temp Pulse Resp BP Pulse Ox O2 Del Method O2 Flow Rate 98.1 F 66 16 132/80 H 96 Room Air 2 02/03/25 07:00 02/03/25 07:00 02/03/25 07:00 02/03/25 07:00 02/03/25 07:00 02/03/25 07:00 02/03/25 03:36 Narrative Exam General: No acute distress, well nourished, AAO x3 Eye: PERRL, EOMI, normal conjunctiva, no scleral icterus HENT: Normocephalic, atraumatic, hearing intact to conversation at normal volume, moist oral mucosa Neck: Supple, non-tender, no JVD, no lymphadenopathy Lungs: Non-labored respirations, symmetric chest rise, Clear to auscultate bilaterally, No wheezing, rhonchi, crackles Heart: Peripheral pulses intact bilaterally, Regular Rate and Rhythm. Abdomen: Soft, non-distended, no palpable masses, mild tenderness in umbilical region Musculoskeletal: Normal range of motion and strength, No cyanosis or edema, No visible joint swelling Skin: Skin is warm, dry, no rashes or lesions. Psychiatric: Cooperative, appropriate mood and affect, Awake and alert, not agitated Neuro: Cranial nerves II-XII grossly intact. Strength 5/5 throughout. Sensations intact to light touch. Objective Labs 02/04/25 04:42 02/04/25 04:42 Labs: Laboratory Results - last 24 hr 02/02/25 02/02/25 02/02/25 07:21 10:14 13:56 WBC 5.4 RBC 4.21 Hgb 13.0 Hct 37.3 MCV 89 MCH 30.9 MCHC 34.9 RDW Std Deviation 41.8 Plt Count 170 D Neut % (Auto) 65 Lymph % (Auto) 26 [place] % (Auto) 7 Eos % (Auto) 2 Baso % (Auto) 0 Neut # (Auto) 3.5 Lymph # (Auto) 1.4 [place] # (Auto) 0.4 Eos # (Auto) 0.1 Baso # (Auto) 0.0 Immature Gran # (Auto) 0.01 H Absolute Nucleated RBC 0.00 Immature Gran % 0 Nucleated RBC % 0 PT INR Sodium 143 Potassium 3.4 Chloride 108 H Carbon Dioxide 24.2 Anion Gap 11 BUN 8 L Creatinine 0.6 Estim Creat Clear Calc 105.3 eGFR > 60 BUN/Creatinine Ratio 13 Glucose 139 H Calculated Osmolality 285 Lactic Acid 2.5 H 1.9 Calcium 8.3 Corrected Calcium 8.6 Phosphorus 2.8 Magnesium Total Bilirubin AST ALT Alkaline Phosphatase Total Protein Albumin 3.6 Globulin Albumin/Globulin Ratio 02/02/25 02/03/25 15:33 05:21 WBC 3.2 L D RBC 4.01 Hgb 12.5 Hct 35.7 L MCV 89 MCH 31.2 MCHC 35.0 RDW Std Deviation 42.1 Plt Count 128 L D Neut % (Auto) 52 Lymph % (Auto) 40 [place] % (Auto) 6 Eos % (Auto) 3 Baso % (Auto) 0 Neut # (Auto) 1.6 L Lymph # (Auto) 1.3 [place] # (Auto) 0.2 Eos # (Auto) 0.1 Baso # (Auto) 0.0 Immature Gran # (Auto) 0.00 Absolute Nucleated RBC 0.00 Immature Gran % 0 Nucleated RBC % 0 PT 12.0 INR 1.1 Sodium 146 H Potassium 4.0 D Chloride 108 H Carbon Dioxide 29.1 Anion Gap 9 BUN 9 Creatinine 0.6 Estim Creat Clear Calc 105.3 eGFR > 60 BUN/Creatinine Ratio 15 Glucose 93 Calculated Osmolality 289 Lactic Acid 1.1 Calcium 8.7 Corrected Calcium 8.9 Phosphorus 3.2 Magnesium 1.8 Total Bilirubin 1.7 H AST 30 ALT 18 Alkaline Phosphatase 59 Total Protein 6.1 Albumin 3.8 Globulin 2.3 Albumin/Globulin Ratio 1.7 Quality Measures Quality Measures none Assessment & Plan Assessment Current Active Medications: Generic Name Dose Route Start Last Admin Trade Name Freq PRN Reason Stop Dose Admin Acetaminophen 650 mg 02/02/25 01:21 Acetaminophen 325 Mg Tablet PO 03/04/25 01:20 Q6H PRN Fever >101.5 Acetaminophen 650 mg 02/02/25 01:21 Acetaminophen 325 Mg Tablet PO 03/04/25 01:20 Q6H PRN PAIN SCALE 1-3 (mild Carvedilol 3.125 mg 02/03/25 09:00 Carvedilol 3.125 Mg Tablet PO 03/05/25 08:59 BID SIMBA Ondansetron HCl 4 mg 02/02/25 01:21 Ondansetron Inj 2 Mg/Ml Inj 2 Ml IVP 03/04/25 01:20 Q6H PRN NAUSEA OR VOMITING Protocol Plan This is a 54-year-old female with past medical history of cirrhosis, hypertension presented to the ED with complaints of Periumbilical pain,Nausea ,swelling and 1 episode of vomiting. She was admitted for incarcerated umbilical hernia which was reduced by conscious sedation. #Incarcerated umbilical hernia #Lactic Acidosis -Complaints of periumbilical pain, vomiting, nausea and protuberance. -On admission, BP 122/78, pulse rate 58, temperature 98.3 -CT scan shown small bowel obstruction secondary to incarcerated small bowel incarcerated hernia -Successfully able to consciously sedate and reduce the hernia back into the abdomen by the ED doctor. -Evaluated by General Surgery, who advised that surgical intervention for the incarcerated umbilical hernia is not required at this time, as the hernia was successfully reduced in the ED. -Initial labs showed a biarbonate level of 19.7 and lactic acid 0.9. A repeat stat renal panel and lactic acid were obtained, revealing normalization of bicarbonate to 24.2 but an increase in lactic acid to 2.5. - Patient received primary umbilical hernia repair today 02/03. Plan -Will stay at the hospital for 1 more day for bowel movement, postop pain, or development of any fevers or tachycardia. Patient will be discharged tomorrow morning. -Consulted Dr. Elias for the further management of abdominal rectal hernia -Ordered IVF LR 100ml/hr for 500ml ?Transitioned to clear liquid diet from NPO. Ordered NPO after midnight. ?Ordered PT/INR and type&screen. # Cirrhosis Currently no stigmata of cirrhosis. She is following Doctor For her cirrhosis at [facility] looks normal ?Continue to monitor. # Hypertension Initial blood pressure 164/92 currently it is 132/78 ?Continuing her home medication propranolol 20 mg daily Code status: Full DVT prophylaxis: SCD Diet: NPO Daniels: None Lines: PIV Disposition: Med Surg Assessment and plan discussed with my attending physician Dr. Rush and Dr. Solorzano (PGY-3) Dr. Ragland (PGY-1) - Internal medicine resident Attending Provider Attestation/Addendum I have examined the patient, reviewed labs and imaging findings, discussed the case with the resident(s), and reviewed entered orders. I agree with the plan of care as outlined in this note, with these additional summaries/recommendations: Patient seen at bedside. No acute overnight events. Patient has no new symptoms to report today. She will go for surgical intervention of incarcerated umbilical hernia. Patient NPO. Continue pain management and IVF. Will start diet when able. Patient has underlying cirrhosis which is fairly well compensated at this time. Outpatient follow-up with GI doctor in [place]. Continue home antihypertensives. Lactic acidosis now resolved. Patient updated on the plan and agreement. All questions answered to satisfaction. Please see residents note for additional details and management. Dr. Adri MD
--- NOTE | 2025-02-03 12:09 | PD.SUROPNT ---
Date of Procedure 02/03/25 Pre Op Diagnosis Umbilical hernia with recent episode of incarceration Post Op Diagnosis Same Procedure Primary umbilical hernia repair Findings 1cm umbilical hernia Procedure Description After discussion of risks and benefits, patient was brought to the operating room, SCDs were placed and general anesthesia was induced. She received preoperative antibiotics and was prepped and draped in usual sterile fashion. After timeout a vertical incision was made directly over the umbilicus. The skin was retracted and subcutaneous tissue was divided with electrocautery. The hernia defect was easily identified and was noted to be quite small, slightly larger than 1 cm. The defect was probed and there were no underlying adhesions and no herniated tissue or bowel. The defect was closed primarily with two interrupted 0 Ethibond sutures. The wound was irrigated and hemostasis was ensured. The skin was infiltrated with half percent Marcaine for a total of 22 cc. The wound was closed with 2-0 Vicryl followed by 4-0 Monocryl and reinforced with Dermabond. Patient was extubated and brought to PACU in stable condition Pathology / specimen None Estimated Blood Loss 10 Surgeon Genoveva Elias MD Surgical Staff Operation Date: 02/03/25 11:15 Case Staff Anesthesiologist: Angel Thayer
--- NOTE | 2025-02-03 12:16 | SUR.PHASEI ---
1216: Pt. wakes to name then drifts back to sleep, vitals stable, breathing unlabored, no complaint of pain or nausea, dressing to umbilicus CDI, no active bleed noted, report received from Rick MARAVILLA and Marian VALADEZ.
--- NOTE | 2025-02-03 12:50 | SUR.PHASEI ---
1250: Pt. AAOx4, vitals stable, breathing unlabored, complaint of slight pain, pt. stated pain is tolerable, no complaint of nausea, dressing to umbilicus CDI, no active bleed noted. Pt. tolerated sips of water well, gave report to Peter VALADEZ prior to transfer to room 350. Family made aware of transfer to room.
--- NOTE | 2025-02-03 13:15 | PC.NURSE ---
Patient back from surgery, alert awake, incision closed with dermabond, no bleeding noted, open to air.
--- NOTE | 2025-02-03 19:00 | PC.NURSE ---
Report received, pt sitting up in bed was able to consume dinner no c/o nausea or pain.
--- NOTE | 2025-02-03 19:48 | PC.NURSE ---
Pt up in bathroom cleaning self up, no complaints of pain, educated not to scrub incision when cleaning abd pt verbalized understanding.
[2025-02-04 04:00] VITALS: BP 137/80; PULSE 67; RESP 17; TEMP 36.1; O2SAT 98
[2025-02-04 05:21] LABS: Basophils # (Auto) 0.0 Thou/mm3 (0.0-0.2); Basophils % (Auto) 0 % (0-2.5); Eosinophils # (Auto) 0.0 Thou/mm3 (0.0-0.5); Eosinophils % (Auto) 0 % (0-10); Hematocrit 34.2 % (36.0-46.0); Hemoglobin 12.3 g/dL (12.0-16.0); Immature Granulocytes Auto 0.02 Thou/mm3 (0.00-0.00); Lymphocytes # (Auto) 0.6 Thou/mm3 (1.0-4.8); Lymphocytes % (Auto) 15 % (10-50); Mean Corpuscular HGB Conc 36.0 g/dl (31.0-37.0); Mean Corpuscular Hemoglobin 31.1 pg (25.0-35.0); Mean Corpuscular Volume 86 fL (80-100); Monocytes # (Auto) 0.2 Thou/mm3 (0.0-0.8); Monocytes % (Auto) 4 % (0-12); Neutrophils # (Auto) 3.5 Thou/mm3 (1.8-7.7); Neutrophils % (Auto) 81 % (37-80); Nucleated Red Blood Cell # 0.00 Thou/mm3 (0.00-0.00); Nucleated Red Blood Cell % 0 /100 WBC (0); Platelet Count 122 Thou/mm3 (140-440); RDW Standard Deviation 38.5 fL (36.4-46.3); Red Blood Count 3.96 Miln/mm3 (4.00-5.20); White Blood Count 4.3 Thou/mm3 (3.6-11.0)
[2025-02-04 05:40] LABS: INR 1.2 (0.9-1.3); Prothrombin Time 12.3 Seconds (9.0-12.2)
[2025-02-04 05:45] LABS: Alanine Aminotransferase 27 U/L (10-49); Albumin, Serum 4.0 gm/dL (3.5-5.0); Albumin/Globulin Ratio 1.7 (1.2-2.2); Alkaline Phosphatase 62 U/L (46-116); Anion Gap 12 (7-16); Aspartate Amino Transferase 37 U/L (0-34); BUN/Creatinine Ratio 18 Ratio (12-20); Bilirubin,Total 1.4 mg/dL (0.3-1.2); Blood Urea Nitrogen 11 mg/dL (9-23); Calcium 9.1 mg/dL (8.3-10.6); Calcium (Corrected) 9.1 mg/dL (8.5-10.1); Carbon Dioxide 25.4 mMol/L (20.0-31.0); Chloride 109 mMol/L (98-107); Creatinine (Component) 0.6 mg/dL (0.6-1.3); Estimated Creatinine Clearance 105.3 mL/min (>60); Globulin 2.4 gm/dL (2.3-3.5); Glucose 127 mg/dL (74-106); Magnesium 1.8 mg/dL (1.6-2.6); Osmolality,Calculated 291 (275-295); Phosphorous 3.5 mg/dL (2.4-5.1); Potassium 3.7 mMol/L (3.4-5.1); Sodium 146 mMol/L (136-145); Total Protein 6.4 gm/dL (5.7-8.2); eGFR > 60 See Note
[2025-02-04 08:00] VITALS: BP 137/80; BP 143/80; PULSE 67; PULSE 79; RESP 18; TEMP 36.8; O2SAT 97
--- NOTE | 2025-02-04 09:11 | ESDS_ITS ---
Planned Discharge Date 02/04/25 DS: Providers Provider Date of admission: 02/02/25 01:21 Primary care physician: Yakov Rivera MD Admitting Provider: Shara Howe MD Attending Provider on Admission: Mervin Rush MD Consults: 02/02/25 01:49 Consult to General Surgery Stat Comment: Consulting Provider: Genoveva Elias Attending Provider on DC: Daphne Ragland DO Discharging Provider: Daphne Ragland DO DS: Diagnosis Problem List Completed Was Problem List Reviewed/Reconciled?: Yes Hospital Course Hospital Course Hospital course: Summary: This is a 54-year-old female with past medical history of cirrhosis, hypertension presented to the ED on 02/01/2025 with complaints of Periumbilical pain, nausea, swelling and 1 episode of vomiting. She was admitted for incarcerated umbilical hernia which was reduced by conscious sedation at the ED. Patient received umbilical hernia repain on 02/02 and was discharged 1 day after. ED course: Vitals BP 164/92, pulse rate 68, respiratory 20, temperature 97.7, saturating oxygen 95% on 2 L of oxygen . Pertinent imaging findings:CT abd/pelvis wo contrast showing small bowel obstruction secondary to incarcerated small bowel umbilical hernia. Hospital Course: On admission, general surgery has been consulted after CT abd/pelvis w/o c ontrast showing incarcerated small bowel in a umbilical hernia. She was evaluated by General Surgery, Dr. Elias, who advised that surgical intervention for the incarcerated umbilical hernia is not required at this time, as the hernia was successfully reduced in the ED and patient was asymptomatic. However, Patient decided to do hernia repair surgery and received it on 02/02/2025. Surgery went without complication. She stayed at the hospital for 1 more day for monitoring bowel movement, post-op pain, or development of any fevers or tachycardia. Instructions: Avoid strenuous activity including lifting objects >10lbs for 6 weeks You may resume showering in 2 days, on 02/05 It is ok to get incision wet at that time, pat dry after Avoid bathing or swimming for 2 weeks Your incision has skin glue on it which will fall off on its own and does not need to be replaced. Your stitches will not need to be removed If you develop worsening pain, nausea/vomiting, fever or concerns about the incision site please seek care in ER Follow up with Dr Elias in 2 weeks call to make an appointment Incision Care: * Keep your incision clean and dry. You may shower 24-48 hours after surgery unless otherwise advised by your surgeon. Pat the incision dry with a clean towel. * Avoid submerging the incision in water (no swimming, hot tubs, or baths) until cleared by your doctor. * Check the incision site daily for signs of infection (redness, swelling, increased pain, or discharge). If you notice any of these, contact your healthcare provider. Pain Management: * You may experience mild to moderate pain after the procedure. Qwqs-rxt-urvjapn pain relievers such as acetaminophen (Tylenol) or ibuprofen (Advil, Motrin) can help manage the pain. Take medications as directed. * If your doctor prescribed stronger pain medication, use it as directed. Do not exceed the recommended dosage. Activity: * Rest and avoid strenuous activities for the first few days after surgery. Gradually resume normal activities as tolerated. * Avoid heavy lifting (anything heavier than 10 lbs) for 4-6 weeks. * You may return to work after 3-7 days, depending on the type of work you do and your recovery. Diet: * Resume your regular diet as tolerated. Start with soft foods if your stomach feels sensitive. * Drink plenty of fluids to stay hydrated, especially if you were given pain medications that may cause constipation. Signs of Complications to Watch For: * Infection: Increased redness, warmth, or swelling around the incision site, or drainage that is yellow, green, or foul-smelling. * Fever: A temperature higher than 101?F (38.3?C) may be a sign of infection. * Increased pain: While some discomfort is normal, severe or worsening pain should be addressed by your doctor. * Swelling or bulging: If the area around your hernia feels hard or swollen, or if you notice a bulge, contact your doctor. This may indicate a complication. Follow-Up Appointment: * A follow-up appointment is usually scheduled within 7-10 days after surgery. It?s important to attend this to monitor your healing and remove any stitches if needed. * If you haven't already scheduled a follow-up, contact your surgeon's office. When to Call Your Doctor: * If you have any concerns or questions regarding your recovery. * If you notice severe swelling, excessive pain, or any signs of infection. * If you cannot keep down fluids or food, or experience vomiting for more than 24 hours. #Incarcerated umbilical hernia #Lactic Acidosis #Cirrhosis #Hypertension Assessment and plan discussed with my attending physician Dr. Rush and Dr. Solorzano (PGY-3) Dr. Ragland (PGY-1) - Internal medicine resident Status at Discharge Overall status at discharge: patient is progressing back to baseline Time Spent with Patient Time attestation: Total time spent providing and/or coordinating discharge services: Time spent: Greater than 30 minutes Exam Vital Signs Temp Pulse Resp BP Pulse Ox O2 Del Method O2 Flow Rate 97.0 F 67 17 137/80 H 98 Room Air 2 02/04/25 04:00 02/04/25 08:00 02/04/25 04:00 02/04/25 08:00 02/04/25 04:00 02/04/25 04:00 02/03/25 12:31 Narrative Exam General: No acute distress, well nourished, AAO x3 Eye: PERRL, EOMI, normal conjunctiva, no scleral icterus HENT: Normocephalic, atraumatic, hearing intact to conversation at normal volume, moist oral mucosa Neck: Supple, non-tender, no JVD, no lymphadenopathy Lungs: Non-labored respirations, symmetric chest rise, Clear to auscultate bilaterally, No wheezing, rhonchi, crackles Heart: Peripheral pulses intact bilaterally, Regular Rate and Rhythm. Abdomen: Soft, non-distended, no palpable masses, minimal tenderness in umbilica l region Musculoskeletal: Normal range of motion and strength, No cyanosis or edema, No visible joint swelling Skin: Skin is warm, dry, no rashes or lesions. Psychiatric: Cooperative, appropriate mood and affect, Awake and alert, not agitated Neuro: Cranial nerves II-XII grossly intact. Strength 5/5 throughout. Sensations intact to light touch. Discharge Plan Plan Patient Disposition: HOME (Self Care) Care Plan Goals: Incision Care: * Keep your incision clean and dry. You may shower 24-48 hours after surgery unless otherwise advised by your surgeon. Pat the incision dry with a clean towel. * Avoid submerging the incision in water (no swimming, hot tubs, or baths) until cleared by your doctor. * Check the incision site daily for signs of infection (redness, swelling, increased pain, or discharge). If you notice any of these, contact your healthcare provider. Pain Management: * You may experience mild to moderate pain after the procedure. Uqvu-vlv-febaijg pain relievers such as acetaminophen (Tylenol) or ibuprofen (Advil, Motrin) can help manage the pain. Take medications as directed. * If your doctor prescribed stronger pain medication, use it as directed. Do not exceed the recommended dosage. Activity: * Rest and avoid strenuous activities for the first few days after surgery. Gradually resume normal activities as tolerated. * Avoid heavy lifting (anything heavier than 10 lbs) for 4-6 weeks. * You may return to work after 3-7 days, depending on the type of work you do and your recovery. Diet: * Resume your regular diet as tolerated. Start with soft foods if your stomach feels sensitive. * Drink plenty of fluids to stay hydrated, especially if you were given pain medications that may cause constipation. Signs of Complications to Watch For: * Infection: Increased redness, warmth, or swelling around the incision site, or drainage that is yellow, green, or foul-smelling. * Fever: A temperature higher than 101?F (38.3?C) may be a sign of infection. * Increased pain: While some discomfort is normal, severe or worsening pain should be addressed by your doctor. * Swelling or bulging: If the area around your hernia feels hard or swollen, or if you notice a bulge, contact your doctor. This may indicate a complication. Follow-Up Appointment: * A follow-up appointment is usually scheduled within 7-10 days after surgery. It?s important to attend this to monitor your healing and remove any stitches if needed. * If you haven't already scheduled a follow-up, contact your surgeon's office. When to Call Your Doctor: * If you have any concerns or questions regarding your recovery. * If you notice severe swelling, excessive pain, or any signs of infection. * If you cannot keep down fluids or food, or experience vomiting for more than 24 hours. Prescriptions/Referrals Prescriptions/Med Rec: New hydrocodone-acetaminophen 5-325 mg tablet 1 tab PO Q8H MDD 3 PRN (Reason: pain) Qty: 3 0RF Continued propranolol 20 mg tablet 20 mg PO DAILY Patient Comments: TAKE 1 TABLET BY MOUTH EVERY DAY Referrals: Yakov Rivera MD [Primary Care Provider, Family Practice] Genoveva Elias MD [Physician, General Surgery] Referral Note: You will receive a message to confirm a follow-up appt with me in 2 weeks Patient/Caregiver Discharge Instructions Other Discharge Activity Instructions:: Avoid strenuous activity including lifting objects >10lbs for 6 weeks You may resume showering in 2 days, on 02/05 It is ok to get incision wet at that time, pat dry after Avoid bathing or swimming for 2 weeks Your incision has skin glue on it which will fall off on its own and does not need to be replaced. Your stitches will not need to be removed If you develop worsening pain, nausea/vomiting, fever or concerns about the incision site please seek care in ER Follow up with Dr Elias in 2 weeks call to make an appointment Education Materials: ED Hernia (Adult) Print Language: Portuguese Stand Alone Forms: Kristel Award Info., Patient Portal Info Letter Discharge Order Discharge Orders: Discharge (Routine); Ordered 02/04/25 Ordered By: Arabella Solorzano Quality Discharge Quality Measures VTE prophylaxis Attestestation MD Attestation I have examined the patient, reviewed labs and imaging findings, discussed the case with the resident(s), and reviewed entered orders. I agree with the plan of care as outlined in this note. Time Spent: [address] Adri MD
== END 2025-02-04 11:56 | disposition home or self-care (01) | DRG 228 ==
LOC: SERX 02-02 00:44 → SERHOLD 02-02 01:31 → S3NX 02-02 03:27
PROVIDERS: Nurse Practitioner Family; Student in an Organized Health Care Education/Training Program; Surgery; Admitting Provider Student in an Organized Health Care Education/Training Program; Emergency Provider Emergency Medicine; PCP Family Medicine; Visit Provider Student in an Organized Health Care Education/Training Program
PROC: 0WQF0ZZ Repair Abdominal Wall, Open Approach (ICD-10-PCS; principal; 2025-02-03 11:00)
DX: K42.0 Umbilical hernia with obstruction, without gangrene (principal); K74.60 Unspecified cirrhosis of liver; I10 Essential (primary) hypertension; E87.20 Acidosis, unspecified; K56.7 Ileus, unspecified; Z79.899 Other long term (current) drug therapy
CPT/HCPCS: 36415; 74176; 80053; 80061; 80069; 81001; 83605; 83690; 83735; 84100; 84443; 85025; 85610; 86850; 86900; 86901; 99283; A4649; J0131; J0690; J1100; J2250; J2270; J2704; J2765; J3010; J3490; J7030; J7120; A9270; J1596; J7999

== ENCOUNTER 2025-02-16 13:01 | Outpatient (AMB) | payer MEDICAID, SELFPAY ==
--- NOTE | 2025-02-16 13:06 | PD.GSCLVISIT ---
Vital Signs - [facility] 02/16/25 13:07 Height 1.6 m Height Method Measured Weight 76.827 kg Weight Measurement Method Standing Scale BMI 29.9 BP 148/78 H Blood Pressure Source Automatic Cuff Blood Pressure Location Right Upper Arm Position Sitting Respiration 18 Pulse 73 Pulse Source Monitor Temp 98.1 F Temp Source Temporal Artery Scan Pulse Oximetry (%) 97 Oxygen Delivery Method Room Air Med/Allergies Allergies & Medications Allergies No Known Allergies Allergy (Verified 02/16/25 13:07) Medication Reconciliation propranolol 20 mg tablet 20 mg PO DAILY 02/02/25 [History Confirmed 02/16/25] hydrocodone 5 mg-acetaminophen 325 mg tablet 1 tab PO Q8H PRN pain #3 tabs 02/04/25 [Rx Confirmed 02/16/25] MA Intake Visit Data Collection New Patient or Established: Established Patient (seen at [facility] within 3 years) Seen by Clinical Staff ONLY (RN/MA): No Reason for Visit:: HERNIA F/U Pain Present Currently: No Pain Scale Used: Guillory-Williamson/Numerical Drying Tunnel Operator Required: No PCP or OBGYN visit in last 3 months: Yes Hx Now: No Do You Feel Safe at Home: Yes Authorities Contacted: N/A Smoking Status Smoking Status: Never smoker Immunization / Flu Flu Vaccine in the Last 12 Months: No Flu Vaccine Exclusion Criteria: No Exclusion Criteria Past Medical History Past Medical History NEUROLOGIC: Positive Neurological Disorders and Seizures CARDIAC: Positive Cardiac Disorders and Hypertension; Negative Congestive Heart Failure RESPIRATORY: Negative Chronic Obstructive Pulmonary Disease (COPD) GASTROINTESTINAL: Positive Gastrointestinal Disorders and Cirrhosis GENITOURINARY: Negative Genitourinary Disorders or Renal Disease REPRODUCTIVE: Negative Endometriosis, Pelvic Inflammatory Disease, Previous Pregnancies or Uterine Prolapse ENDOCRINE: Negative Endocrine Disorders, Diabetes Mellitus Type 1 or Diabetes Mellitus Type 2 HEMATOLOGIC: Negative Blood Disorders PSYCHO/SOCIAL: Positive Anxiety OTHER HISTORY: Positive Chicken Pox; Negative Hospitalization, Autoimmune Disease, Down Syndrome, Developmental Delay, Shingles, Falls, Blood Transfusions, Anesthesia Reactions, MRSA, VRSA, Vancomycin-Resistant Enterococci or Cancer Family History FAMILY HISTORY: Positive Family Cardiac Disorders (father HTN) and Family Cancer (Mon breast ca) Surgical History SURGICAL: Positive Eye Surgery, Nose Surgery and Tubal Ligation; Negative Cardiac Surgery, Endocrine Surgery, Thyroidectomy, Ear Surgery, Abdominal Surgery, Nephrectomy, Joint Replacement, Neurologic Surgery or Lumpectomy Social History SMOKING STATUS: Smoking status: Never smoker ALCOHOL: Alcohol Intake: Former ALCOHOL FREQUENCY: Alcohol Intake Frequency: holidays/special occasions only HOUSING: Housing: House LIVES WITH: Lives With: Significant Other HPI HPI Narrative 54F with HTN, 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 Pt underwent primary repair of umbilical hernia 02/03/25 and is here for planned follow up. Patient reports feeling very well overall, she has no pain, no nausea, is eating well and having regular bladder and bowel function. She is abstaining from strenuous activity as she usually likes to lift weights but she is walking ROS Review of Systems Systems Reviewed: All systems reviewed, normal except as documented Objective/Exam General General Appearance: alert, cooperative and well groomed Resp Respiratory exam: Absent respiratory distress Abdominal Abdominal exam: Present soft and hernia (Umbilical incision healed with no erythema, no fluctuance, no sign of recurrent hernia); Absent distention or tenderness Assessment & Plan Diagnosis / Problem List (1) Incarcerated umbilical hernia: Status: Acute Assessment & Plan: 54F with HTN, 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) and known umbilical hernia presented to ER 02/01 with pain, nausea and vomiting, findings of incarcerated small bowel which was reduced in ER followed by primary repair on 02/03, recovering very well Plan: Avoid strenuous activity including lifting objects greater than 10 pounds for 6 weeks postop Follow-up as needed Office Procedures GNS Level of Care Nursing/Assessment Patient Status: Established Patient Nursing Assessment/Reassesment: Medication Reconciliation, Update PMH in EMR and Vital Signs Coordination of Care: Complex Care and Chronic Disease 1-5, Education Complex Pt/Fam, Consent,records obtained, informed consent, Results/Orders obtained and Staff clarify orders Established Patient Charge Established Patient Point Assignment: 95 Established Patient Point Charge: EP Level 3 (80-115) Patient Portal Questionaires Social History Living Situation History Housing: House Housing Other:: Pt lives life partner Tobacco History Smoking Status: Never smoker Alcohol History Alcohol Intake: Former Alcohol Intake Frequency: holidays/special occasions only Domestic Abuse History Do You Feel Safe at Home: Yes Review of Systems Report any current symptoms Only answer those that you have currently: Past Medical History Past Medical History Have you ever been diagnosed with any of the following: Neurological Problems Seizures: Yes Cardiology Problems Congestive Heart Failure: No Hypertension: Yes Respiratory Problems Chronic Obstructive Pulmonary Disease (COPD): No Stomache/Intestinal Problems Cirrhosis: Yes Genital/Urinary Problems Renal Disease: No Reproductive Problems Endometriosis: No Pelvic Inflammatory Disease: No Previous Pregnancies: No Uterine Prolapse: No Endocrine Problems Diabetes Mellitus Type 1: No Diabetes Mellitus Type 2: No Psychologic Problems Anxiety: Yes Other Problems Hospitalization: No Autoimmune Disease: No Down Syndrome: No Developmental Delay: No Shingles: No Falls: No Blood Transfusions: No Anesthesia Reactions: No MRSA: No VRSA: No Vancomycin-Resistant Enterococci: No Chicken Pox: Yes Cancer: No Surgical History Thyroidectomy: No
[2025-02-16 13:07] VITALS: BP 148/78; PULSE 73; RESP 18; TEMP 36.7; O2SAT 97; BMI 29.9
== END 2025-02-16 13:27 | disposition home or self-care (01) ==
PROVIDERS: PCP Family Medicine; Referring Provider Family Medicine; Supervising Provider Surgery; Visit Provider Surgery
DX: K42.0 Umbilical hernia with obstruction, without gangrene (principal); Z48.89 Encounter for other specified surgical aftercare
CPT/HCPCS: 99213; G0463